=== PATIENT | male | born 1990 | race Caucasian/White ===

== ENCOUNTER → 2018-05-31 | Outpatient (CLI) | payer MEDICAID ==
--- NOTE | 2018-05-31 15:41 | ECGEPIP ---
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 Electronically Signed On 05-31-2018 15:41:08 EST by Douglas Reyes
[2018-05-31 16:14] LABS: HEMATOCRIT 42.7 % (42.0-52.0); HEMOGLOBIN 14.1 g/dl (13.5-17.5); MEAN CORPUSCULAR HEMOGLOBIN 30.9 pg (27.0-33.0); MEAN CORPUSCULAR VOLUME 93.6 fl (80.0-96.0); PLATELET COUNT, AUTOMATED 161 10^3/uL (150-450); RED BLOOD COUNT 4.56 10^6/uL (4.30-6.10); WHITE BLOOD COUNT 6.4 10^3/uL (4.0-10.0)
[2018-05-31 16:23] LABS: ALBUMIN 3.9 GM/DL (3.2-5.2); ALT/SGPT 154 U/L (12-78); BILIRUBIN,TOTAL 0.7 MG/DL (0.2-1.0); BLOOD UREA NITROGEN 13 MG/DL (7-18); CALCIUM LEVEL 8.9 MG/DL (8.5-10.1); CARBON DIOXIDE LEVEL 31 MEQ/L (21-32); CHLORIDE LEVEL 103 MEQ/L (98-107); CREATININE FOR GFR 0.91 MG/DL (0.70-1.30); GLOMERULAR FILTRATION RATE > 60.0 (>60); GLUCOSE, FASTING 109 MG/DL (70-100); POTASSIUM SERUM 4.5 MEQ/L (3.5-5.1); SODIUM LEVEL 141 MEQ/L (136-145); TOTAL PROTEIN 6.8 GM/DL (6.4-8.2)
[2018-05-31 18:11] LABS: CHLAMYDIA DNA AMPLIFICATION NEGATIVE (NEGATIVE); GC DNA AMPLIFICATION NEGATIVE (NEGATIVE)
[2018-06-01 09:52] LABS: HEPATITIS B SURFACE ANTIGEN NEGATIVE (NEGATIVE)
[2018-06-01 10:20] LABS: HIV 1&2 SCREEN CENTAUR NEGATIVE (NEGATIVE)
[2018-06-01 10:23] LABS: HEPATITIS C VIRUS ABY INDEX > 11.0 INDEX (<0.8)
== END ==
LOC: M LAB 14:28
PROVIDERS: ATTEND Family Medicine
DX: F11.20 Opioid dependence, uncomplicated (principal)

== ENCOUNTER → 2018-11-07 | Outpatient (REF) | payer OTHER, MEDICAID ==
[2018-11-07 17:37] LABS: APPEARANCE, URINE CLEAR (CLEAR); BACTERIA, URINE AUTO NEGATIVE (NEGATIVE); BILIRUBIN, URINE AUTO NEGATIVE (NEGATIVE); BLOOD, URINE BLOOD NEGATIVE (NEGATIVE); CALCIUM OXALATE CRYSTALS SMALL; COLOR, URINE AMBER (YELLOW); GLUCOSE, URINE (UA) AUTO NEGATIVE (NEGATIVE); KETONE, URINE AUTO TRACE mg/dL (NEGATIVE); LEUKOCYTE ESTERASE, URINE AUTO NEGATIVE (NEGATIVE); MUCUS, URINE SMALL (NEGATIVE); NITRITE, URINE AUTO NEGATIVE (NEGATIVE); PROTEIN, URINE AUTO NEGATIVE (NEGATIVE); RBC, URINE AUTO 0 /HPF (0-3); SPECIFIC GRAVITY URINE AUTO 1.026 (1.002-1.035); SQUAMOUS EPITHELIAL CELL UR AU 0 /HPF (0-6); WBC, URINE AUTO 1 /HPF (0-3)
[2018-11-07 17:48] LABS: BASO % 0.3 % (0.0-1.0); EOS % 0.3 % (0.0-3.0); HEMATOCRIT 44.1 % (42.0-52.0); HEMOGLOBIN 14.8 g/dl (13.5-17.5); LYMPH # 2.6 10^3/uL (1.5-6.5); LYMPH % 34.6 % (24.0-44.0); MEAN CORPUSCULAR HEMOGLOBIN 31.6 pg (27.0-33.0); MEAN CORPUSCULAR HGB CONC 33.6 g/dl (32.0-36.5); MONO # 0.4 10^3/uL (0.0-0.8); MONO % 5.2 % (0.0-5.0); NEUTROPHILS # 4.5 10^3/uL (1.8-7.7); NEUTROPHILS % 59.5 % (36.0-66.0); PLATELET COUNT, AUTOMATED 187 10^3/uL (150-450); RED BLOOD COUNT 4.69 10^6/uL (4.30-6.10); WHITE BLOOD COUNT 7.5 10^3/uL (4.0-10.0)
[2018-11-07 17:51] LABS: ALBUMIN 4.3 GM/DL (3.2-5.2); ALT/SGPT 36 U/L (12-78); BILIRUBIN,TOTAL 0.6 MG/DL (0.2-1.0); BLOOD UREA NITROGEN 11 MG/DL (7-18); CALCIUM LEVEL 9.2 MG/DL (8.5-10.1); CARBON DIOXIDE LEVEL 32 MEQ/L (21-32); CHLORIDE LEVEL 102 MEQ/L (98-107); CHOLESTEROL LEVEL 180 MG/DL (<200); CHOLESTEROL RISK RATIO 2.727 (<5); CREATININE FOR GFR 0.86 MG/DL (0.70-1.30); GLOMERULAR FILTRATION RATE > 60.0 (>60); GLUCOSE, FASTING 81 MG/DL (70-100); HDL CHOLESTEROL 66 MG/DL (>40); LDL CHOLESTEROL 106 MG/DL (<100); NON-HDL-C 114 MG/DL; POTASSIUM SERUM 3.5 MEQ/L (3.5-5.1); SODIUM LEVEL 139 MEQ/L (136-145); TOTAL PROTEIN 7.7 GM/DL (6.4-8.2); TRIGLYCERIDES LEVEL 38 MG/DL (<150)
[2018-11-07 18:04] LABS: INR 1.12; PROTHROMBIN TIME 14.5 SECONDS (12.1-14.4)
[2018-11-07 18:31] LABS: HIV 1&2 SCREEN CENTAUR NEGATIVE (NEGATIVE)
[2018-11-07 19:01] LABS: HEMOGLOBIN A1c 5.5 %
[2018-11-07 20:37] LABS: CHLAMYDIA DNA AMPLIFICATION NEGATIVE (NEGATIVE); GC DNA AMPLIFICATION NEGATIVE (NEGATIVE)
[2018-11-09 09:58] LABS: HEPATITIS B SURFACE ANTIBODY POSITIVE (POSITIVE)
[2018-11-09 10:08] LABS: HEPATITIS B SURFACE ANTIGEN NEGATIVE (NEGATIVE)
== END ==
LOC: M LAB REF 16:40
PROVIDERS: ATTEND Nurse Practitioner Family
DX: B19.20 Unspecified viral hepatitis C without hepatic coma (principal); Z11.3 Encounter for screening for infections with a predominantly sexual mode of transmission

== ENCOUNTER 2018-12-07 12:35 | Inpatient (IN) | payer MEDICAID, OTHER ==
[~2018-12-07] VITALS: Ht 172.7 cm; Wt 97.6 kg
[2018-12-07] MEDS ORDERED: ONDANSETRON 4MG/2ML VIAL (J2405) IV ONE (13:15)
[2018-12-07] MEDS ORDERED: MORPHINE 2 MG/ML 1ML SYRINGE (J2270) IV ONE ×2 (13:15→15:00)
[2018-12-07 13:31] LABS: BASO % 0.3 % (0.0-1.0); EOS % 0.2 % (0.0-3.0); HEMATOCRIT 43.9 % (42.0-52.0); HEMOGLOBIN 14.7 g/dl (13.5-17.5); LYMPH # 3.2 10^3/uL (1.5-6.5); LYMPH % 36.2 % (24.0-44.0); MEAN CORPUSCULAR HEMOGLOBIN 31.5 pg (27.0-33.0); MEAN CORPUSCULAR HGB CONC 33.5 g/dl (32.0-36.5); MONO # 0.5 10^3/uL (0.0-0.8); NEUTROPHILS % 57.1 % (36.0-66.0); PLATELET COUNT, AUTOMATED 178 10^3/uL (150-450); RED BLOOD COUNT 4.67 10^6/uL (4.30-6.10); WHITE BLOOD COUNT 8.7 10^3/uL (4.0-10.0)
[2018-12-07 14:03] LABS: OSMOLALITY SERUM 294 MOSM/KG (275-295)
[2018-12-07 14:08] LABS: ACETAMINOPHEN LEVEL < 2.0 UG/ML (10.0-30.0); ALBUMIN 4.3 GM/DL (3.2-5.2); ALT/SGPT 120 U/L (12-78); BILIRUBIN,DIRECT 0.2 MG/DL (0.0-0.2); BILIRUBIN,TOTAL 0.6 MG/DL (0.2-1.0); BLOOD UREA NITROGEN 19 MG/DL (7-18); CALCIUM LEVEL 9.4 MG/DL (8.5-10.1); CARBON DIOXIDE LEVEL 27 MEQ/L (21-32); CHLORIDE LEVEL 108 MEQ/L (98-107); CPK CREATINE PHOSPHOKINASE 315 U/L (39-308); CREATININE FOR GFR 0.82 MG/DL (0.70-1.30); ETHYL ALCOHOL (ETHANOL) < 0.003 % (0.000-0.010); GLOMERULAR FILTRATION RATE > 60.0 (>60); GLUCOSE, FASTING 117 MG/DL (70-100); POTASSIUM SERUM 4.2 MEQ/L (3.5-5.1); SALICYLATE LEVEL < 1.7 MG/DL (5.0-30.0); SODIUM LEVEL 142 MEQ/L (136-145); TOTAL PROTEIN 7.5 GM/DL (6.4-8.2)
[2018-12-07] MEDS ORDERED: KETOROLAC 30 MG/ML VIAL (J1885) IV ONE (14:15)
--- NOTE | 2018-12-07 14:27 | REP ---
CHEST SINGLE VIEW: There is no evidence of acute infiltrate. No pleural effusion is seen. The heart is normal in size. The mediastinal silhouette is unremarkable. The visualized osseous structures are intact. IMPRESSION: No acute pulmonary disease. Electronically Signed by Oscar Skinner MD 12/10/2018 06:28 P
[2018-12-07] MEDS ORDERED: NS 1,000 ML IV ONE ×2 (14:45→15:30)
--- NOTE | 2018-12-07 16:07 | REP ---
CT of the brain without IV contrast: Motion artifact degrades almost all of the images. Comparison is 06/12/2014. There is no hemorrhage. There is no edema, mass effect or midline shift. The the cortical stripe is grossly unremarkable. The visualized paranasal sinuses and mastoid air cells are clear. Impression: Motion artifact. There is no gross evidence of hemorrhage, acute infarct or mass. Electronically Signed by Oscar Correa MD 12/07/2018 01:00 P
[2018-12-07 16:37] LABS: AMPHETAMINES LEVEL URINE NEGATIVE (NEGATIVE); BARBITURATES URINE NEGATIVE (NEGATIVE); BENZODIAZEPINES URINE NEGATIVE (NEGATIVE); CANNABINOIDS URINE POSITIVE (NEGATIVE); COCAINE METABOLITE URINE NEGATIVE (NEGATIVE); METHADONE URINE NEGATIVE (NEGATIVE); OPIATES URINE POSITIVE (NEGATIVE); PHENCYCLIDINE URINE NEGATIVE (NEGATIVE)
[2018-12-07] MEDS ORDERED: SUBO8MIS SL (17:36)
[2018-12-07] MEDS ORDERED: PILL CUTTER 1 EACH XX PRN (18:15)
[2018-12-07] MEDS ORDERED: MORPHINE 4 MG/ML 1ML VIAL/SYRINGE (J2270) IV ONE (19:00)
[2018-12-07] MEDS ORDERED: BUPRENORPHINE/NALOXONE 8-2MG SUBLINGUAL TABLET(SUBOXONE) SL ONE (19:15)
--- NOTE | 2018-12-07 19:19 | ECGEPIP ---
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
[2018-12-07] MEDS: NS 1,000 ML IV SCH (19:28)
[2018-12-07 20:06] LABS: BASO % 0.2 % (0.0-1.0); EOS % 0.2 % (0.0-3.0); HEMATOCRIT 39.6 % (42.0-52.0); HEMOGLOBIN 13.3 g/dl (13.5-17.5); LYMPH # 2.6 10^3/uL (1.5-6.5); LYMPH % 31.4 % (24.0-44.0); MEAN CORPUSCULAR HEMOGLOBIN 31.7 pg (27.0-33.0); MEAN CORPUSCULAR HGB CONC 33.6 g/dl (32.0-36.5); MEAN CORPUSCULAR VOLUME 94.5 fl (80.0-96.0); MONO # 0.5 10^3/uL (0.0-0.8); MONO % 6.3 % (0.0-5.0); NEUTROPHILS # 5.2 10^3/uL (1.8-7.7); NEUTROPHILS % 61.7 % (36.0-66.0); PLATELET COUNT, AUTOMATED 146 10^3/uL (150-450); RED BLOOD COUNT 4.19 10^6/uL (4.30-6.10); WHITE BLOOD COUNT 8.4 10^3/uL (4.0-10.0)
[2018-12-07 20:33] LABS: BLOOD UREA NITROGEN 17 MG/DL (7-18); CALCIUM LEVEL 8.2 MG/DL (8.5-10.1); CARBON DIOXIDE LEVEL 28 MEQ/L (21-32); CHLORIDE LEVEL 111 MEQ/L (98-107); CREATININE FOR GFR 0.91 MG/DL (0.70-1.30); GLOMERULAR FILTRATION RATE > 60.0 (>60); GLUCOSE, FASTING 130 MG/DL (70-100); POTASSIUM SERUM 3.7 MEQ/L (3.5-5.1); SODIUM LEVEL 144 MEQ/L (136-145)
[2018-12-07 21:44] VITALS: BP 124/56
--- NOTE | 2018-12-07 23:20 | HPEPDOC ---
General Date of Admission Dec 07, 2018 at 17:45 Date of Service: Dec 07, 2018 Chief Complaint The patient is a 28-year-old male admitted with a reason for visit of Drug Overdose; Toxic Metabolic Enchephalopathy. Source: Patient, Family, RN/MD, Old records Exam Limitations: Other Severity: Severe Associated Symptoms: Increased agitation History of Present Illness 28 year old male with PMH of IV heroin use now on Suboxone, hepatitis C was brought in to the ED for Altered mental status. As per girlfriend he was running short of his Suboxone for the past 2 days he had only 1/4th of a strip where normally he takes 1.5 strips daily. This am he was feeling like he was withdrawing so he went down the street from their house and got some pills from an "old lady" down the street. Initially there was some confusion about what the lady gave the girlfriend said in was Soma, trazodone and Seroquel. The patient had initially mentioned Vicodin and Klonopin but he was very confused, agitated climbing out of bed. He was give 2 doses of morphine in the D which calmed him down. When i examined the patient he was more alert and cooperative. He could tell he the name of the hospital and the day of the week. I asked him what he took and he said he took only Soma several pills. He denied any vicodin or klonapin or trazodone or Seroquel. Later on the patient's father came and he corroborated that he took 10 of Somas. He had called the lady and clarified that it was only soma. Patient's father described that he was all locked up , curled and shaking , he could not stand, did not not where he was and what he was doing. As per girlfriend at one point he stood up and just fell back against the TV stand and hit his back and side of his forehead. On my interview he complained of runny nose, feeling very anxious and asking for his Suboxone. He did complain of some soreness on his right forehead 3/10 in intensity, no radiation, dull aching type. I asked him why he took the pills. he said he was feeling that he was withdrawing and just wanted something to calm him down. He denied any suicidal ideas and trying to commit suicide. Poison control was contacted from Ed ans advised symptomatic management and observation overnight and recheck basic and EKG 6 hours after the first one. He is being admitted to the hospitalist service for toxic encephalopathy. I personally looked at his EKG ; It was sinus rhythm, no Qtc prolongation. Normal qrs complexes. I personally looked at the CXR there is no acute process I looked at the CT scan there is no intracranial hemorrhage or infarction or trauma. Home Medications Scheduled Buprenorphine HCl/Naloxone HCl (Suboxone 8 mg-2 mg Sl Film) 1 Each Film, 1.5 STRIP SL DAILY, (Reported) PER FAMILY IN ROOM, PT HAD RUN OUT OF MEDICATION Allergies Coded Allergies: No Known Allergies (Unverified , 12/07/18) Past Medical History Medical History IV heroin use now on Suboxone, hepatitis C Surgical History None Family History Significant Family History: No pertinent family hx Social History * Smoker: current smoker Alcohol: occationally Drugs: marijuana, prescription drugs A-FIB/CHADSVASC A-FIB History Current/History of A-Fib/PAF?: No Review of Systems Constitutional: Denies: Chills, Fever, Night Sweats ENT: Denies: Head Aches, Ear Pain, Dysphagia Skin: Denies: Rash, Lesions, Breakdown Pulmonary: Denies: Dyspnea, Cough Cardiovascular: Denies: Chest Pain, Palpitations, Orthopnea, Paroxysmal Noc. Dyspnea, Lt Headedness Gastrointestinal: Denies: Nausea, Vomiting, Abdominal Pain, Diarrhea Musculoskeletal: Denies: Neck Pain, Back Pain, Joint Pain, Muscle Pain, Spasms Neurological: Denies: Weakness, Numbness, Change in speech, Confusion Physical Examination General Exam: Positive: No Acute Distress, Other (somnolent, intermittently agitated though easily arousable and oriented to place and person) Eye Exam: Positive: Conjunctiva & lids normal, EOMI ENT Exam: Positive: Atraumatic, Mucous membr. moist/pink, Pharynx Normal Neck Exam: Positive: Supple; Negative: JVD, thyromegaly Chest Exam: Positive: Clear to auscultation, Normal air movement Heart Exam: Positive: Rate Normal, Regular Rhythm, Normal S1, Normal S2; Negative: Murmurs, Rubs Telemetry: Positive: No significant arrhythmia Abdomen Exam: Positive: Normal bowel sounds, Soft; Negative: Tenderness, Hepatospenomegaly Extremity Exam: Positive: Normal pulses; Negative: Clubbing, Cyanosis, Edema Skin Exam: Positive: Other skin issue (abrasion on the right forehead and on the right upper back) Neuro Exam: Positive: Strength at 5/5 X4 ext, Normal Tone, Reflexes 2+ Vital Signs Vital Signs Date Time Temp Pulse Resp B/P (MAP) Pulse Ox O2 Delivery O2 Flow Rate FiO2 12/07/18 19:11 18 12/07/18 18:31 97.3 61 99 Room Air 12/07/18 18:30 95/50 (65) Laboratory Data Labs 24H Laboratory Tests 2 12/07/18 12:55: Bedside Glucose (Misc Panel) 115H 12/07/18 13:15: Immature Granulocyte % (Auto) 0.2, White Blood Count 8.7, Red Blood Count 4.67, Hemoglobin 14.7, Hematocrit 43.9, Mean Corpuscular Volume 94.0, Mean Corpuscular Hemoglobin 31.5, Mean Corpuscular Hemoglobin Concent 33.5, Red Cell Distribution Width 12.5, Platelet Count 178, Neutrophils (%) (Auto) 57.1, Lymphocytes (%) (Auto) 36.2, Monocytes (%) (Auto) 6.0H, Eosinophils (%) (Auto) 0.2, Basophils (%) (Auto) 0.3, Neutrophils # (Auto) 5.0, Lymphocytes # (Auto) 3.2, Monocytes # (Auto) 0.5, Eosinophils # (Auto) 0.0, Basophils # (Auto) 0.0, Nucleated Red Blood Cells % (auto) 0.0, Anion Gap 7L, Glomerular Filtration Rate > 60.0, Osmolality 294, Calcium Level 9.4, Aspartate Amino Transf (AST/SGOT) 83H, Alanine Aminotransferase (ALT/SGPT) 120H, Alkaline Phosphatase 70, Total Bilirubin 0.6, Direct Bilirubin 0.2, Total Creatine Kinase 315H, Total Protein 7.5, Albumin 4.3, Albumin/Globulin Ratio 1.34, Thyroid Stimulating Hormone (TSH) 1.090, Salicylates Level < 1.7L, Acetaminophen Level < 2.0L, Ethyl Alcohol Level < 0.003 12/07/18 16:00: Urine Amphetamines Screen NEGATIVE, Urine Benzodiazepines Screen NEGATIVE, Urine Opiates Screen POSITIVEH, Urine Methadone Screen NEGATIVE, Urine Barbiturates Screen NEGATIVE, Urine Phencyclidine Screen NEGATIVE, Urine Cocaine Metabolite Screen NEGATIVE, Urine Cannabinoids Screen POSITIVEH CBC/BMP Laboratory Tests 12/07/18 13:15 Red Blood Count 4.67, Mean Corpuscular Volume 94.0, Mean Corpuscular Hemoglobin 31.5, Mean Corpuscular Hemoglobin Concent 33.5, Red Cell Distribution Width 12.5, Neutrophils (%) (Auto) 57.1, Lymphocytes (%) (Auto) 36.2, Monocytes (%) (Auto) 6.0 H, Eosinophils (%) (Auto) 0.2, Basophils (%) (Auto) 0.3, Neutrophils # (Auto) 5.0, Lymphocytes # (Auto) 3.2, Monocytes # (Auto) 0.5, Eosinophils # (Auto) 0.0, Basophils # (Auto) 0.0 Assessment/Plan 28 year old male with PMH of IV heroin use now on Suboxone, hepatitis C was brought in to the ED for Altered mental status. As per girlfriend he was running short of his Suboxone for the past 2 days he had only 1/4th of a strip where normally he takes 1.5 strips daily. This am he was feeling like he was withdrawing so he went down the street from their house and got some pills from an "old lady" down the street. Initially there was some confusion about what the lady gave the girlfriend said in was Soma, trazodone and Seroquel. The patient h ad initially mentioned Vicodin and Klonopin but he was very confused, agitated climbing out of bed. He was give 2 doses of morphine in the D which calmed him down. When i examined the patient he was more alert and cooperative. He could tell he the name of the hospital and the day of the week. I asked him what he took and he said he took only Soma several pills. He denied any vicodin or klonapin or trazodone or Seroquel. Later on the patient's father came and he corroborated that he took 10 of Somas. He had called the lady and clarified that it was only soma. Patient's father described that he was all locked up , curled and shaking , he could not stand, did not not where he was and what he was doing. As per girlfriend at one point he stood up and just fell back against the TV stand and hit his back and side of his forehead. On my interview he complained of runny nose, feeling very anxious and asking for his Suboxone. He did complain of some soreness on his right forehead 3/10 in intensity, no radiation, dull aching type. I asked him why he took the pills. he said he was feeling that he was withdrawing and just wanted something to calm him down. He denied any suicidal ideas and trying to commit suicide. Poison control was contacted from Ed ans advised symptomatic management and observation overnight and recheck basic and EKG 6 hours after the first one. He is being admitted to the hospitalist service for toxic encephalopathy. Toxic encephalopathy due to soma overdose and also opiate withdrawal . patient ran out of his Suboxone will give sitter. will restart Suboxone today. will follow poison control's instruction. Drug overdose with soma Non suicidal Accidental with intension to control opiate withdrawal symptoms. will monitor on telemetry for any arrhythmias. Will recheck EKG for any qtc prolongation. IVf. H/o polysubstance abuse and heroin addict in the past. now dependent on Suboxone. Ran out so also having opiate withdrawal received 2 doses of morphine with decrease in agitation will restart subaxone tonight. Hepatitis C. Plan / VTE VTE Prophylaxis Ordered?: Yes SHARRI REHMAN MD Dec 07, 2018 19:38
[2018-12-07 23:59] VITALS: BP 141/67
[2018-12-08] MEDS: NS 1,000 ML IV SCH ×3 (00:58→08:05)
[2018-12-08] MEDS ORDERED: traZODone 25MG PER 1/2 TABLET PO ONE (01:00)
[2018-12-08 04:00] VITALS: BP 104/49
[2018-12-08 05:40] LABS: BASO % 0.3 % (0.0-1.0); EOS % 0.6 % (0.0-3.0); HEMATOCRIT 35.9 % (42.0-52.0); HEMOGLOBIN 11.7 g/dl (13.5-17.5); LYMPH # 3.1 10^3/uL (1.5-6.5); LYMPH % 46.1 % (24.0-44.0); MEAN CORPUSCULAR HEMOGLOBIN 30.6 pg (27.0-33.0); MEAN CORPUSCULAR HGB CONC 32.6 g/dl (32.0-36.5); MONO # 0.4 10^3/uL (0.0-0.8); MONO % 6.2 % (0.0-5.0); NEUTROPHILS # 3.1 10^3/uL (1.8-7.7); NEUTROPHILS % 46.6 % (36.0-66.0); PLATELET COUNT, AUTOMATED 128 10^3/uL (150-450); RED BLOOD COUNT 3.82 10^6/uL (4.30-6.10); WHITE BLOOD COUNT 6.7 10^3/uL (4.0-10.0)
[2018-12-08 06:00] LABS: BLOOD UREA NITROGEN 14 MG/DL (7-18); CALCIUM LEVEL 8.2 MG/DL (8.5-10.1); CARBON DIOXIDE LEVEL 28 MEQ/L (21-32); CHLORIDE LEVEL 112 MEQ/L (98-107); GLOMERULAR FILTRATION RATE > 60.0 (>60); GLUCOSE, FASTING 102 MG/DL (70-100); POTASSIUM SERUM 3.7 MEQ/L (3.5-5.1); SODIUM LEVEL 143 MEQ/L (136-145)
[2018-12-08 08:00] VITALS: BP 114/56
[2018-12-08] MEDS ORDERED: ENOXAPARIN 40 MG/0.4 ML SYRINGE (J1650) SC SCH (09:00)
[2018-12-08] MEDS ORDERED: BUPRENORPHINE/NALOXONE 8-2MG SUBLINGUAL TABLET(SUBOXONE) SL SCH ×2 (09:00)
--- NOTE | 2018-12-08 16:48 | DS.PDOC ---
Discharge Summary General Date of Admission Dec 07, 2018 at 17:45 Date of Discharge 12/07/18 Discharge Summary PROCEDURES PERFORMED DURING STAY: [None]. ADMITTING DIAGNOSES: Drug overdose DISCHARGE DIAGNOSES: Acute toxic encephalopathy Accidental drug overdose with Soma Opioid dependence with withdrawal Polysubstance abuse Hepatitis C COMPLICATIONS/CHIEF COMPLAINT: Drug Overdose; Toxic Metabolic Enchephalopathy. HISTORY OF PRESENT ILLNESS: Please see history and physical HOSPITAL COURSE: 28 year old male with PMH of IV heroin use now on Suboxone, hepatitis C was brought in to the ED for Altered mental status. As per girlfriend he was running short of his Suboxone for the past 2 days he had only 1/4th of a strip where normally he takes 1.5 strips daily. This am he was feeling like he was withdrawing so he went down the street from their house and got some pills from an "old lady" down the street. Initially there was some confusion about what the lady gave the girlfriend said in was Soma, trazodone and Seroquel. The patient had initially mentioned Vicodin and Klonopin but he was very confused, agitated climbing out of bed. He was give 2 doses of morphine in the D which calmed him down. When i examined the patient he was more alert and cooperative. He could tell he the name of the hospital and the day of the week. I asked him what he took and he said he took only Soma several pills. He denied any vicodin or klonapin or trazodone or Seroquel. Later on the patient's father came and he corroborated that he took 10 of Somas. He had called the lady and clarified that it was only soma. Patient's father described that he was all locked up , curled and shaking , he could not stand, did not not where he was and what he was doing. As per girlfriend at one point he stood up and just fell back against the TV stand and hit his back and side of his forehead. On my interview he complained of runny nose, feeling very anxious and asking for his Suboxone. He did complain of some soreness on his right forehead 3/10 in intensity, no radiation, dull aching type. I asked him why he took the pills. he said he was feeling that he was withdrawing and just wanted something to calm him down. He denied any suicidal ideas and trying to commit suicide. Poison control was contacted from Ed ans advised symptomatic management and observation overnight and recheck basic and EKG 6 hours after the first one. He is being admitted to the hospitalist service for toxic encephalopathy. Toxic encephalopathy due to soma overdose and also opiate withdrawal . patient ran out of his Suboxone now resolved. Accidental Drug overdose with soma He took them to control opiate withdrawal symptoms. H/o polysubstance abuse and heroin addict in the past. now dependent on Suboxone. Ran out so was having opiate withdrawal on presentation Now resolved Hepatitis C. from IV drug use. DISCHARGE MEDICATIONS: Please see below. ALLERGIES: Please see below. PHYSICAL EXAMINATION ON DISCHARGE: VITAL SIGNS: Please see below. General Exam: Positive: No Acute Distress, cooperative , alert, awake, oriented x 3 Eye Exam: Positive: Conjunctiva & lids normal, EOMI ENT Exam: Positive: Atraumatic, Mucous membr. moist/pink, Pharynx Normal Neck Exam: Positive: Supple; Negative: JVD, thyromegaly Chest Exam: Positive: Clear to auscultation, Normal air movement Heart Exam: Positive: Rate Normal, Regular Rhythm, Normal S1, Normal S2; Negative: Murmurs, Rubs Telemetry: Positive: No significant arrhythmia Abdomen Exam: Positive: Normal bowel sounds, Soft; Negative: Tenderness, Hepatosplenomegaly Extremity Exam: Positive: Normal pulses; Negative: Clubbing, Cyanosis, Edema Skin Exam: Positive: Other skin issue (abrasion on the right forehead and on the right upper back) Neuro Exam: Positive: Strength at 5/5 X4 ext, Normal Tone, Reflexes 2+ LABORATORY DATA: Please see below. ACTIVITY: [As tolerated]. DIET: Regular DISCHARGE PLAN: Home DISPOSITION: discharged home DISCHARGE INSTRUCTIONS: Follow up PMD in 1 to 2 weeks DISCHARGE CONDITION: [Stable]. TIME SPENT ON DISCHARGE: 35 minutes. Vital Signs/I&Os Vital Signs Date Time Temp Pulse Resp B/P (MAP) Pulse Ox O2 Delivery O2 Flow Rate FiO2 12/08/18 08:00 98.0 64 18 114/56 (75) 98 12/07/18 21:00 Room Air I&O- Last 24 Hours up to 6 AM 12/08/18 05:59 Intake Total 2810 ml Balance 2810 ml Laboratory Data Labs 24H Laboratory Tests 2 12/07/18 19:53: Immature Granulocyte % (Auto) 0.2, White Blood Count 8.4, Red Blood Count 4.19L, Hemoglobin 13.3L, Hematocrit 39.6L, Mean Corpuscular Volume 94.5, Mean Corpuscular Hemoglobin 31.7, Mean Corpuscular Hemoglobin Concent 33.6, Red Cell Distribution Width 12.6, Platelet Count 146L, Neutrophils (%) (Auto) 61.7, Lymphocytes (%) (Auto) 31.4, Monocytes (%) (Auto) 6.3H, Eosinophils (%) (Auto) 0.2, Basophils (%) (Auto) 0.2, Neutrophils # (Auto) 5.2, Lymphocytes # (Auto) 2.6, Monocytes # (Auto) 0.5, Eosinophils # (Auto) 0.0, Basophils # (Auto) 0.0, Nucleated Red Blood Cells % (auto) 0.0, Anion Gap 5L, Glomerular Filtration Rate > 60.0, Blood Urea Nitrogen 17, Creatinine 0.91, Sodium Level 144, Potassium Level 3.7, Chloride Level 111H, Carbon Dioxide Level 28, Calcium Level 8.2L 12/08/18 05:25: Immature Granulocyte % (Auto) 0.2, White Blood Count 6.7, Red Blood Count 3.82L, Hemoglobin 11.7L, Hematocrit 35.9L, Mean Corpuscular Volume 94.0, Mean Corpuscular Hemoglobin 30.6, Mean Corpuscular Hemoglobin Concent 32.6, Red Cell Distribution Width 12.8, Platelet Count 128L, Neutrophils (%) (Auto) 46.6, Lymphocytes (%) (Auto) 46.1H, Monocytes (%) (Auto) 6.2H, Eosinophils (%) (Auto) 0.6, Basophils (%) (Auto) 0.3, Neutrophils # (Auto) 3.1, Lymphocytes # (Auto) 3.1, Monocytes # (Auto) 0.4, Eosinophils # (Auto) 0.0, Basophils # (Auto) 0.0, Nucleated Red Blood Cells % (auto) 0.0, Anion Gap 3L, Glomerular Filtration Rate > 60.0, Blood Urea Nitrogen 14, Creatinine 0.70, Sodium Level 143, Potassium Level 3.7, Chloride Level 112H, Carbon Dioxide Level 28, Calcium Level 8.2L CBC/BMP Laboratory Tests 12/07/18 19:53 Red Blood Count 4.19 L, Mean Corpuscular Volume 94.5, Mean Corpuscular Hemoglobin 31.7, Mean Corpuscular Hemoglobin Concent 33.6, Red Cell Distribution Width 12.6, Neutrophils (%) (Auto) 61.7, Lymphocytes (%) (Auto) 31.4, Monocytes (%) (Auto) 6.3 H, Eosinophils (%) (Auto) 0.2, Basophils (%) (Auto) 0.2, Neutrophils # (Auto) 5.2, Lymphocytes # (Auto) 2.6, Monocytes # (Auto) 0.5, Eosinophils # (Auto) 0.0, Basophils # (Auto) 0.0, Calcium Level 8.2 L 12/08/18 05:25 Red Blood Count 3.82 L, Mean Corpuscular Volume 94.0, Mean Corpuscular Hemogl obin 30.6, Mean Corpuscular Hemoglobin Concent 32.6, Red Cell Distribution Width 12.8, Neutrophils (%) (Auto) 46.6, Lymphocytes (%) (Auto) 46.1 H, Monocytes (%) (Auto) 6.2 H, Eosinophils (%) (Auto) 0.6, Basophils (%) (Auto) 0.3, Neutrophils # (Auto) 3.1, Lymphocytes # (Auto) 3.1, Monocytes # (Auto) 0.4, Eosinophils # (Auto) 0.0, Basophils # (Auto) 0.0, Calcium Level 8.2 L Discharge Medications Scheduled Buprenorphine HCl/Naloxone HCl (Suboxone 8 mg-2 mg Sl Film) 1 Each Film, 1.5 STRIP SL DAILY, (Reported) PER FAMILY IN ROOM, PT HAD RUN OUT OF MEDICATION Allergies Coded Allergies: No Known Allergies (Unverified , 12/07/18) SHARRI REHMAN MD Dec 08, 2018 16:48
--- NOTE | 2018-12-08 19:06 | ECGEPIP ---
[facility] Test Date: 2018-12-08 Pat Name: RAJNI LANDIN Department: Room: [place] [address] Gender: Male Information Assurance: NAGA : 1990 Requested By: SHARRI REHMAN Order Number: [id number] Reading MD: Claudio Encarnacion Measurements Intervals [place] Rate: 53 P: 59 [place]: 176 QRS: 32 QRSD: 95 T: 59 QT: 421 QTc: 398 Interpretive Statements SINUS BRADYCARDIA WITH SINUS ARRHYTHMIA Somewhat prominent precordial voltage Slower rate than previous day. Electronically Signed on 12-08-2018 19:06:05 EDT by Claudio Encarnacion
== END 2018-12-08 11:46 | disposition left against medical advice (07) | DRG 812 ==
LOC: EDBD 12:35 → M ED 12:35 → M ED INP 17:45 → M PCU 21:30
PROVIDERS: ADMIT Internal Medicine Nephrology; ATTEND Internal Medicine Nephrology
DX: T42.8X1A Poisoning by antiparkinsonism drugs and other central muscle-tone depressants, accidental (unintentional), initial encounter (principal); G92 Toxic encephalopathy; F10.10 Alcohol abuse, uncomplicated; F17.200 Nicotine dependence, unspecified, uncomplicated; B19.20 Unspecified viral hepatitis C without hepatic coma; F11.23 Opioid dependence with withdrawal; Z79.899 Other long term (current) drug therapy

== ENCOUNTER 2020-01-26 02:57 | Emergency (ER) | payer OTHER ==
[~2020-01-26 02:57] MED LIST: SUBO8MIS SL
[2020-01-26 02:58] VITALS: BP 131/90
== END 2020-01-26 05:28 | disposition home or self-care (01) ==
LOC: M ED 02:57
DX: F19.10 Other psychoactive substance abuse, uncomplicated (principal); Z63.4 Disappearance and death of family member; F17.200 Nicotine dependence, unspecified, uncomplicated; Z81.4 Family history of other substance abuse and dependence; Z81.8 Family history of other mental and behavioral disorders; Z86.19 Personal history of other infectious and parasitic diseases

== ENCOUNTER 2020-07-22 09:30 | Emergency (ER) | payer OTHER ==
[~2020-07-22] VITALS: Ht 172.7 cm; Wt 82.6 kg
[2020-07-22] MEDS ORDERED: SUBL100I SC (09:39)
[2020-07-22] MEDS ORDERED: AMPICILLIN SOD/SULBACTAM SOD 3 GM in D5W MINI-BAG PLUS 100 ML IV ONE (09:55)
[2020-07-22] MEDS ORDERED: dexameTHASONE 20MG/5ML VIAL (J1100 PER 1MG) IV ONE (09:55)
[2020-07-22] MEDS ORDERED: KETOROLAC 30 MG/ML 1ML VIAL IV ONE (09:55)
[2020-07-22] MEDS ORDERED: ISOVUE-370 76% 100ML VIAL As Ordered ONE (10:29)
[2020-07-22 10:38] LABS: BASO % 0.2 % (0.0-1.0); EOS % 0.3 % (0.0-3.0); HEMATOCRIT 43.7 % (42.0-52.0); HEMOGLOBIN 14.1 g/dl (13.5-17.5); LYMPH # 2.9 10^3/uL (1.5-5.0); MEAN CORPUSCULAR HEMOGLOBIN 30.1 pg (27.0-33.0); MEAN CORPUSCULAR HGB CONC 32.3 g/dl (32.0-36.5); MEAN CORPUSCULAR VOLUME 93.2 fl (80.0-96.0); MONO # 0.9 10^3/uL (0.0-0.8); MONO % 5.6 % (2.0-8.0); NEUTROPHILS # 11.4 10^3/uL (1.5-8.5); NEUTROPHILS % 74.4 % (36.0-66.0); PLATELET COUNT, AUTOMATED 182 10^3/uL (150-450); RED BLOOD COUNT 4.69 10^6/uL (4.30-6.10); WHITE BLOOD COUNT 15.3 10^3/uL (4.0-10.0)
--- NOTE | 2020-07-22 10:51 | REP ---
INDICATION: right lower jaw/neck swelling ? abscess. COMPARISON: None. TECHNIQUE: Axial contrast-enhanced images were obtained from the thoracic inlet to the skull base with coronal and sagittal reformations using 100 cc Isovue 370 intravenous contrast material. Maximal intensity projection and multiplanar re-formation images along with 3-D rendered imaging of the arterial vasculature. This CT examination was performed using the following dose reduction techniques: Automated exposure control, adjustment of mA and/or kv according to the patient's size, and the use of iterative reconstruction technique. FINDINGS: There is significant soft tissue swelling, fat stranding, and phlegmonous changes overlying primarily the region of the right mandible with extension along the right neck as well as moderate right parapharyngeal soft tissue swelling without airway narrowing or stenosis. These findings are compatible with an infectious inflammatory process and suspected early abscess formation overlying the right mandible. The underlying osseous structures as well as dentition appear relatively normal and intact. There is associated right-sided adenopathy. The sinuses and mastoid air cells are all well aerated and clear. The bilateral orbits and intraconal contents are symmetric and normal. IMPRESSION: Infectious inflammatory process involving the right side of the lower facial region and neck centered at the level of the mandible with phlegmonous changes and suspected early forming abscess without current discrete enhancing border and central liquefaction. Associated adenopathy noted. <Electronically signed by Prateek Kim > 07/22/20 [id number]
[2020-07-22 10:59] LABS: ALBUMIN 4.1 GM/DL (3.2-5.2); BILIRUBIN,DIRECT 0.1 MG/DL (0.0-0.2); BILIRUBIN,TOTAL 0.4 MG/DL (0.2-1.0); C REACTIVE PROTEIN QUANTITATIV 1.5 MG/DL (0.00-0.30); TOTAL PROTEIN 8.1 GM/DL (6.4-8.2)
[2020-07-22 11:01] LABS: ERYTHROCYTE SEDIMENTATION RATE 22 mm/hr (0-15)
[2020-07-22] MEDS ORDERED: AUGM875T28 PO (11:41)
[2020-07-22] MEDS ORDERED: PRED20TA PO (11:41)
[2020-07-22 11:47] VITALS: BP 138/65
[2020-07-22] MEDS ORDERED: KETO10TAB PO (11:47)
--- NOTE | 2020-07-22 20:07 | ED PDOC ---
Post-Departure Follow-Up dr young faxed formal report of ct neck for fu Landen Sal MD Jul 22, 2020 20:07
== END 2020-07-22 11:48 | disposition home or self-care (01) ==
LOC: M ED 09:30
DX: L03.211 Cellulitis of face (principal); F33.9 Major depressive disorder, recurrent, unspecified; F41.9 Anxiety disorder, unspecified; Z79.891 Long term (current) use of opiate analgesic; F17.210 Nicotine dependence, cigarettes, uncomplicated; F12.20 Cannabis dependence, uncomplicated
CPT/HCPCS: 70491; 80047; 80076; 83605; 85025; 85652; 86140; 87040; 96365; 96375; 99283; J1100; J1885; Q9967

== ENCOUNTER → 2022-09-02 | Outpatient (CLI) | payer OTHER ==
[~2022-09-02] MED LIST changes: +AUGM875T28 PO; +KETO10TAB PO; +PRED20TA PO; +SUBL100I SC
[2022-09-02 17:50] LABS: MEAN CORPUSCULAR HGB CONC 33.3 g/dl (32.0-36.5); MEAN CORPUSCULAR VOLUME 89.9 fl (80.0-96.0); PLATELET COUNT, AUTOMATED 183 10^3/uL (150-450); RED BLOOD COUNT 4.34 10^6/uL (4.30-6.10); WHITE BLOOD COUNT 6.2 10^3/uL (4.0-10.0)
[2022-09-02 18:17] LABS: ALKALINE PHOSPHATASE 72 U/L (46-116); ALT/SGPT 24 U/L (7.0-40); AST/SGOT 32 U/L (<34); BILIRUBIN,TOTAL 0.4 MG/DL (0.3-1.2); BLOOD UREA NITROGEN 17 MG/DL (9-23); CALCIUM LEVEL 8.9 MG/DL (8.5-10.1); CARBON DIOXIDE LEVEL 31 MMOL/L (20-31); CHLORIDE LEVEL 102 MMOL/L (98-107); CHOLESTEROL LEVEL 182 MG/DL (<200); CREATININE FOR GFR 0.72 MG/DL (0.70-1.30); GLOMERULAR FILTRATION RATE > 60.0 (>60); GLUCOSE, FASTING 95 MG/DL (60-100); HDL CHOLESTEROL 56.7 MG/DL (>40); LDL CHOLESTEROL 111.1 MG/DL (<100); NON-HDL-C 125.3 MG/DL; POTASSIUM SERUM 4.3 MMOL/L (3.5-5.1); SODIUM LEVEL 139 MMOL/L (136-145); THYROID STIMULATING HORMONE 2.953 uIU/ML (0.55-4.78); TOTAL PROTEIN 6.5 G/DL (5.7-8.2); TRIGLYCERIDES LEVEL 71 MG/DL (<150)
[2022-09-02 18:57] LABS: HEMOGLOBIN A1c 5.3 % (4.0-6.0)
== END ==
LOC: M RAD 16:44
PROVIDERS: ATTEND Family Medicine
DX: I10 Essential (primary) hypertension (principal)

== ENCOUNTER 2023-09-15 21:45 | Emergency (ER) | payer OTHER, SELFPAY ==
[~2023-09-15] VITALS: Ht 172.7 cm; Wt 78.1 kg
[2023-09-15 22:20] LABS: BASO % 0.2 % (0.0-1.0); EOS # 0.1 10^3/uL (0.0-0.5); EOS % 0.6 % (0.0-3.0); HEMATOCRIT 42.8 % (42.0-52.0); HEMOGLOBIN 14.5 g/dl (13.5-17.5); LYMPH # 2.9 10^3/uL (1.5-5.0); LYMPH % 30.4 % (24.0-44.0); MEAN CORPUSCULAR HEMOGLOBIN 30.8 pg (27.0-33.0); MEAN CORPUSCULAR HGB CONC 33.9 g/dl (32.0-36.5); MEAN CORPUSCULAR VOLUME 90.9 fl (80.0-96.0); MONO # 0.4 10^3/uL (0.0-0.8); MONO % 4.7 % (2.0-8.0); NEUTROPHILS % 63.9 % (36.0-66.0); PLATELET COUNT, AUTOMATED 225 10^3/uL (150-450); RED BLOOD COUNT 4.71 10^6/uL (4.30-6.10); WHITE BLOOD COUNT 9.4 10^3/uL (4.0-10.0)
[2023-09-15 22:44] LABS: LIPASE 29 U/L (12-53)
[2023-09-15 22:46] LABS: ALBUMIN 4.1 G/DL (3.2-5.2); ALKALINE PHOSPHATASE 72 U/L (46-116); ALT/SGPT 17 U/L (7.0-40); AST/SGOT 20 U/L (<34); BILIRUBIN,DIRECT < 0.1 MG/DL (<0.4); BILIRUBIN,TOTAL 0.3 MG/DL (0.3-1.2); BLOOD UREA NITROGEN 12 MG/DL (9-23); CALCIUM LEVEL 9.6 MG/DL (8.5-10.1); CARBON DIOXIDE LEVEL 33 MMOL/L (20-31); CHLORIDE LEVEL 100 MMOL/L (98-107); CREATININE FOR GFR 0.61 MG/DL (0.70-1.30); GLOMERULAR FILTRATION RATE > 60.0 (>60); GLUCOSE, FASTING 110 MG/DL (60-100); SODIUM LEVEL 138 MMOL/L (136-145); TOTAL PROTEIN 6.7 G/DL (5.7-8.2)
[2023-09-16] MEDS ORDERED: ISOVUE-370 76% 100ML VIAL As Ordered ONE (00:19)
[2023-09-16] MEDS ORDERED: COLA100C5 PO (01:43)
[2023-09-16] MEDS ORDERED: MIRA3350 PO (01:43)
[2023-09-16 01:48] VITALS: BP 111/67; TEMP 98.3; O2SAT 100
[2023-09-16] MEDS: KETOROLAC 30 MG/ML 1ML VIAL IV ONE (01:58)
== END 2023-09-16 02:10 | disposition home or self-care (01) ==
LOC: M ED 21:45
DX: K59.00 Constipation, unspecified (principal); K56.7 Ileus, unspecified; F41.9 Anxiety disorder, unspecified; F32.A Depression, unspecified; F17.210 Nicotine dependence, cigarettes, uncomplicated; Z79.2 Long term (current) use of antibiotics; Z79.52 Long term (current) use of systemic steroids; Z79.899 Other long term (current) drug therapy
CPT/HCPCS: 74177; 80048; 80076; 81001; 83690; 85025; 96374; 99284; J1885; Q9967

== ENCOUNTER → 2024-02-23 | Outpatient (REF) | payer OTHER ==
[~2024-02-23] MED LIST changes: +COLA100C5 PO; +MIRA3350 PO
[2024-02-23 13:51] LABS: APPEARANCE, URINE MANUAL HAZY (CLEAR); COLOR, URINE MANUAL BROWN (YELLOW)
[2024-02-23 13:52] LABS: BILIRUBIN, URINE MANUAL NEGATIVE (NEGATIVE); BLOOD URINE MANUAL POSITIVE (NEGATIVE); GLUCOSE, URINE (UA) MANUAL NEGATIVE (NEGATIVE); KETONE, URINE MANUAL NEGATIVE (NEGATIVE); LEUKOCYTE ESTERASE, URINE MAN TRACE (NEGATIVE); NITRITE, URINE MANUAL NEGATIVE (NEGATIVE); PROTEIN, URINE MANUAL 3+ mg/dL (NEGATIVE); SPECIFIC GRAVITY,URINE MANUAL 1.025 (1.002-1.035); UROBILINOGEN, URINE MANUAL NORMAL (NORMAL)
[2024-02-23 13:53] LABS: BACTERIA, URINE LARGE AMOUNT; HYALINE CAST, URINE NONE SEEN /lpf (0-1); RBC, URINE TNTC /hpf (0-3); SQUAMOUS EPITHELIAL CELL URINE NONE SEEN /hpf (SMALL AMT)
[2024-02-23 15:20] LABS: Trichomonas vaginalis (AMP) NOT DETECTED (NEGATIVE)
== END ==
LOC: M LAB REF 12:53
PROVIDERS: ATTEND Physician Assistant
DX: N39.0 Urinary tract infection, site not specified (principal); Z20.2 Contact with and (suspected) exposure to infections with a predominantly sexual mode of transmission

== ENCOUNTER → 2024-04-22 | Outpatient (CLI) | payer OTHER ==
[2024-04-22 09:42] LABS: HEMATOCRIT 37.6 % (42.0-52.0); MEAN CORPUSCULAR HEMOGLOBIN 29.2 pg (27.0-33.0); MEAN CORPUSCULAR HGB CONC 31.9 g/dl (32.0-36.5); MEAN CORPUSCULAR VOLUME 91.5 fl (80.0-96.0); PLATELET COUNT, AUTOMATED 208 10^3/uL (150-450); RED BLOOD COUNT 4.11 10^6/uL (4.30-6.10); WHITE BLOOD COUNT 4.9 10^3/uL (4.0-10.0)
[2024-04-22 10:12] LABS: ALBUMIN 3.1 G/DL (3.2-5.2); ALKALINE PHOSPHATASE 103 U/L (40-129); ALT/SGPT 19 U/L (7.0-40); AST/SGOT 14 U/L (<34); BILIRUBIN,TOTAL 0.2 MG/DL (0.3-1.2); BLOOD UREA NITROGEN 17 MG/DL (9-23); CALCIUM LEVEL 8.8 MG/DL (8.5-10.1); CARBON DIOXIDE LEVEL 32 MMOL/L (20-31); CHLORIDE LEVEL 104 MMOL/L (98-107); CREATININE FOR GFR 0.69 MG/DL (0.70-1.30); GLOMERULAR FILTRATION RATE > 60.0 (>60); GLUCOSE, FASTING 114 MG/DL (60-100); POTASSIUM SERUM 4.5 MMOL/L (3.5-5.1); SODIUM LEVEL 140 MMOL/L (136-145); TOTAL PROTEIN 6.7 G/DL (5.7-8.2)
== END ==
LOC: M LAB 09:22
PROVIDERS: ATTEND Nurse Practitioner Family
DX: F43.10 Post-traumatic stress disorder, unspecified (principal)

== ENCOUNTER → 2025-02-13 | Outpatient (CLI) | payer OTHER, SELFPAY ==
[2025-02-13 13:50] LABS: PLATELET COUNT, AUTOMATED 261 10^3/uL (150-450)
[2025-02-13 14:12] LABS: ESTIMATED AVERAGE GLUCOSE 105.0 MG/DL (60-110)
[2025-02-13 15:02] LABS: ALT/SGPT 19 U/L (7.0-40); AST/SGOT 28 U/L (<34); CALCIUM LEVEL 8.7 MG/DL (8.5-10.1); CARBON DIOXIDE LEVEL 29 MMOL/L (20-31); CHLORIDE LEVEL 104 MMOL/L (98-107); CHOLESTEROL LEVEL 199 MG/DL (<200); CHOLESTEROL RISK RATIO 3.50 (<5); CREATININE FOR GFR 0.68 MG/DL (0.70-1.30); GLOMERULAR FILTRATION RATE > 90.0 (>60); LDL CHOLESTEROL 123.6 MG/DL (<100); NON-HDL-C 142.2 MG/DL; POTASSIUM SERUM 4.4 MMOL/L (3.5-5.1); SODIUM LEVEL 140 MMOL/L (136-145); TRIGLYCERIDES LEVEL 93 MG/DL (<150)
== END ==
LOC: M WUC 09:05
DX: F43.10 Post-traumatic stress disorder, unspecified (principal)

== ENCOUNTER → 2025-04-17 | Outpatient (REF) | payer OTHER ==
[~2025-04-17] MED LIST changes: +PROP10TA56 PO; +PROP20TA72 PO
[2025-04-17 12:49] LABS: APPEARANCE, URINE CLEAR (CLEAR); BACTERIA, URINE AUTO NEGATIVE (NEGATIVE); BILIRUBIN, URINE AUTO NEGATIVE (NEGATIVE); BLOOD, URINE BLOOD NEGATIVE (NEGATIVE); GLUCOSE, URINE (UA) AUTO NEGATIVE (NEGATIVE); KETONE, URINE AUTO NEGATIVE (NEGATIVE); LEUKOCYTE ESTERASE, URINE AUTO NEGATIVE (NEGATIVE); NITRITE, URINE AUTO NEGATIVE (NEGATIVE); PROTEIN, URINE AUTO NEGATIVE (NEGATIVE); RBC, URINE AUTO 1 /HPF (0-3); SPECIFIC GRAVITY URINE AUTO 1.025 (1.002-1.035); SQUAMOUS EPITHELIAL CELL UR AU 0 /HPF (0-6); UROBILINOGEN, URINE AUTO 4.0 mg/dL (0.0-2.0); WBC, URINE AUTO 0 /HPF (0-3)
== END ==
LOC: M LAB REF 11:53
PROVIDERS: ATTEND Physician Assistant Medical
DX: N39.0 Urinary tract infection, site not specified (principal)

== ENCOUNTER 2025-04-20 09:21 | Emergency (ER) | payer OTHER ==
[~2025-04-20] VITALS: Ht 172.7 cm; Wt 82.3 kg
[~2025-04-20 09:21] MED LIST changes: -PROP10TA56 PO; -PROP20TA72 PO
[2025-04-20] MEDS ORDERED: PROP10TA56 PO (10:43)
[2025-04-20] MEDS ORDERED: PROP20TA72 PO (10:43)
[2025-04-20 10:59] VITALS: BP 115/64; TEMP 98.3; O2SAT 99
[2025-04-20] MEDS: clonazePAM 0.5 MG TAB PO ONE (11:06)
[2025-04-20] MEDS: BUPRENORPHINE/NALOXONE 8-2MG SUBLINGUAL TABLET(SUBOXONE) SL STA ×3 (11:06)
== END 2025-04-20 11:10 | disposition home or self-care (01) ==
LOC: M ED 09:21
DX: Z76.0 Encounter for issue of repeat prescription (principal); I10 Essential (primary) hypertension; F41.9 Anxiety disorder, unspecified; F32.A Depression, unspecified; F17.290 Nicotine dependence, other tobacco product, uncomplicated; Z79.2 Long term (current) use of antibiotics; Z79.52 Long term (current) use of systemic steroids; Z79.899 Other long term (current) drug therapy

== ENCOUNTER 2025-04-21 08:01 | Emergency (ER) | payer OTHER ==
[~2025-04-21] VITALS: Ht 172.7 cm; Wt 81.8 kg
[~2025-04-21 08:01] MED LIST changes: +PROP10TA56 PO; +PROP20TA72 PO
[2025-04-21] MEDS: clonazePAM 0.5 MG TAB PO ONE (09:30)
[2025-04-21] MEDS: BUPRENORPHINE/NALOXONE 8-2MG SUBLINGUAL TABLET(SUBOXONE) SL STA (09:31)
[2025-04-21 09:32] VITALS: BP 128/64; TEMP 98.3; O2SAT 98
== END 2025-04-21 09:36 | disposition home or self-care (01) ==
LOC: M ED 08:01
DX: Z76.0 Encounter for issue of repeat prescription (principal); B18.2 Chronic viral hepatitis C; F17.210 Nicotine dependence, cigarettes, uncomplicated; Z79.2 Long term (current) use of antibiotics; Z79.52 Long term (current) use of systemic steroids; Z79.899 Other long term (current) drug therapy

== ENCOUNTER 2025-04-22 08:40 | Emergency (ER) | payer OTHER ==
[~2025-04-22] VITALS: Ht 172.7 cm; Wt 81.8 kg
[2025-04-22] MEDS: BUPRENORPHINE/NALOXONE 8-2MG SUBLINGUAL TABLET(SUBOXONE) SL STA (09:07)
[2025-04-22] MEDS: clonazePAM 0.5 MG TAB PO ONE (09:07)
[2025-04-22 09:33] VITALS: BP 118/66; TEMP 98.1; O2SAT 98
== END 2025-04-22 09:37 | disposition home or self-care (01) ==
LOC: M ED 08:40
DX: Z76.0 Encounter for issue of repeat prescription (principal); F41.9 Anxiety disorder, unspecified; F19.10 Other psychoactive substance abuse, uncomplicated; Z79.2 Long term (current) use of antibiotics; Z79.52 Long term (current) use of systemic steroids; Z79.899 Other long term (current) drug therapy